=== PATIENT | male | born 1965 | race Caucasian/White ===

== ENCOUNTER → 2018-04-01 | Outpatient (CLI) | payer BC ==
--- NOTE | 2018-04-01 15:35 | Diagnostic Imaging Report ---
PROCEDURE: MRI lumbar spine. TECHNIQUE: Multiplanar, multisequence MRI of the lumbar spine was performed without contrast. INDICATION: Low back pain, bilateral leg pain. FINDINGS: Lumbar body heights are maintained. There is trace grade 1 retrolisthesis of 2 mm of L5 on S1 with no defect in the pedicles or pars. This is believed to be on a degenerative basis. No marrow edema. No acute endplate irregularity. No bone contusion. The lower thoracic cord, the conus, and the nerves of the cauda equina appeared unremarkable. There are degenerative changes, greatest at the malaligned L5-S1 level where there is disc space narrowing, disc desiccation, disc bulge, and endplate osteophytes with hypertrophic facet arthrosis and thickening of the ligamenta flava. The findings result in moderate right and mild left neuroforaminal stenosis and at least mild narrowing of the right lateral recess. No substantial degree of canal stenosis. Desiccation, loss of stature, and mild circumferential annular bulging of disc at L3-L4 and L4-L5 result in minimal biforaminal narrowing and no substantial canal stenosis. The remaining levels were normal. IMPRESSION: 1. Degenerative changes, greatest at the L5-S1 level, believed to account for mild grade 1 retrolisthesis with bilateral foraminal and lateral recess stenosis as described. 2. No acute bony pathology. No high-grade canal stenoses. The remaining levels are unremarkable. Dictated by: Dictated on workstation # [id number]
== END ==
LOC: RAD 10:14
PROVIDERS: ATTEND Pediatrics
DX: M47.817 Spondylosis without myelopathy or radiculopathy, lumbosacral region (principal); M43.16 Spondylolisthesis, lumbar region; M48.061 Spinal stenosis, lumbar region without neurogenic claudication
CPT/HCPCS: 72148